=== PATIENT | female | born 1960 | race Caucasian/White ===

== ENCOUNTER 2019-05-17 16:26 | Emergency (ER) | payer OTHER ==
[~2019-05-17] VITALS: Ht 162.6 cm; Wt 62.1 kg
[2019-05-17] MEDS ORDERED: ONDANSETRON 2MG/ML, 2ML IVPush ONE (17:00)
[2019-05-17] MEDS ORDERED: SODIUM CHLORIDE FLUSH 10ML SYR IVF ONE (17:00)
[2019-05-17] MEDS ORDERED: MORPHINE SULFATE 4 MG/ML, 1ML IVPush PRN (17:00)
--- NOTE | 2019-05-17 17:01 | NUR ---
PT PRESENTING TO ER AFTER FALL OFF SLED, HITTING LEFT HEAD/SHOULDER/RIBS. NO LOC, NO BRUISING OR DEFORMITY NOTED. CONNECTED TO ALL MONITORING, VSS. FAMILY AT BEDSIDE. ORDERS RECEIVED. IV PLACED, LABS DRAWN. CALL LIGHT WITHIN REACH. REPORT GIVEN TO MARLEEN ALVAREZ
[2019-05-17] MEDS ORDERED: ONDANSETRON 2MG/ML, 2ML ONE (17:03)
[2019-05-17] MEDS ORDERED: MORPHINE SULFATE 4 MG/ML, 1ML ONE (17:04)
[2019-05-17 17:12] LABS: BASOPHILS # (AUTO) 0.04 x10^3/uL (0-0.1); BASOPHILS % (AUTO) 0 % (0-1); EOSINOPHILS # (AUTO) 0.34 x10^3/uL (0-0.4); EOSINOPHILS % (AUTO) 3 % (1-7); LYMPHOCYTES # (AUTO) 1.52 x10^3/uL (1-3.4); LYMPHOCYTES % (AUTO) 14 % (22-44); MD NO; MEAN CORPUSCULAR HEMOGLOBIN 30.3 pg (27.0-34.8); MEAN CORPUSCULAR HGB CONC 33.3 g/dL (32.4-35.8); MEAN PLATELET VOLUME 6.7 fL (7.4-10.4); MONOCYTES # (AUTO) 0.39 x10^3/uL (0.2-0.8); MONOCYTES % (AUTO) 4 % (2-9); NEUTROPHILS # (AUTO) 8.41 x10^3/uL (1.8-6.8); NEUTROPHILS % (AUTO) 79 % (42-75); PLATELET COUNT 335 x10^3/uL (130-400); RED BLOOD COUNT 4.85 x10^6/uL (3.82-5.3); RED CELL DISTRIBUTION WIDTH 13.3 % (9.6-15.2)
[2019-05-17 17:23] LABS: ALBUMIN 4.3 g/dL (3.4-5.0); ANION GAP 7 mmol/L (5-15); CHLORIDE 107 mmol/L (98-107); CREATININE 0.76 mg/dL (0.55-1.02)
--- NOTE | 2019-05-17 18:45 | NUR ---
received report from ANTONIO Chahal. patient awaiting discharge papers.
[2019-05-17 19:12] VITALS: BP 138/80
--- NOTE | 2019-05-17 19:13 | NUR ---
patient discharged with instruction. verbalized understanding.
== END 2019-05-17 19:16 | disposition home or self-care (01) ==
LOC: ED 18:58
DX: S20.222A Contusion of left back wall of thorax, initial encounter (principal); S09.90XA Unspecified injury of head, initial encounter; W18.30XA Fall on same level, unspecified, initial encounter; Y93.89 Activity, other specified; Y92.828 Other wilderness area as the place of occurrence of the external cause; Y99.8 Other external cause status
CPT/HCPCS: 36415; 70450; 71250; 72125; 73030; 80048; 82040; 85025; 93005; 96374; 96375; 99284; J2270; J2405